=== PATIENT | male | born 1960 | race Caucasian/White ===

== ENCOUNTER 2023-01-07 07:05 | Outpatient (REF) | payer OTHER, SELFPAY ==
[2023-01-07 11:41] LABS: Appearance Urine Clear; Color Urine Yellow; Glucose Urine UA Negative (Negative); Leukocyte Esterase Urine Negative (Negative); Nitrite Urine Negative (Negative); Specific Gravity - Urine 1.015 (1.005-1.025); Urine Blood Negative (Negative); Urine Ketones Negative (Negative); Urine Protein Negative (Neg-Trace)
[2023-01-07 11:48] LABS: MANUAL DIFF FLAG NO
[2023-01-07 12:23] LABS: Alanine Aminotransferase 23 U/L (0-40); Albumin Level 4.2 g/dL (3.5-5.0); Alkaline Phosphatase 46 U/L (39-117); Anion Gap 13 (12-20); Aspartate Amino Transferase 22 U/L (5-37); Bilirubin Total 0.6 mg/dL (0.0-1.0); Blood Urea Nitrogen 8 mg/dL (9-16); Calcium 9.2 mg/dL (8.4-10.2); Carbon Dioxide 29 mmol/L (22-29); Chloride 98 mmol/L (96-108); Cholesterol 168 mg/dL (<200); Estimated Glomerular Filt Rate > 60; Glucose Fasting 100 mg/dL (60-99); HDL Cholesterol 45 mg/dL (>40); LDL Cholesterol Calculated 97 mg/dL (<100); Potassium 3.9 mmol/L (3.3-5.1); Sodium 136 mmol/L (135-145); Triglycerides 134 mg/dL (<150)
[2023-01-07 12:31] LABS: Prostate Specific Antigen Scr 1.55 ng/mL (<0.05-4.0)
[2023-01-07 12:32] LABS: Basophils Absolute Auto 0.1 X10*3/uL (0.0-0.2); Basophils Percent Auto 1.2 % (0-2); Eosinophils Absolute Auto 0.1 X10*3/uL (0.0-0.4); Eosinophils Percent Auto 1.9 % (0-4); Hematocrit 49.6 % (42.0-52.0); Hemoglobin 16.5 g/dl (14.0-18.0); Imm Gran Abs Auto 0.02 X10*3/uL (0.00-0.03); Imm Gran Pct Auto 0.4 % (0.0-0.4); Lymphocytes Absolute Auto 1.9 X10*3/uL (1.2-4.9); Lymphocytes Percent Auto 36.5 % (20-40); Mean Corpuscular HGB Conc 33.3 g/dl (31.0-36.0); Mean Corpuscular Hemoglobin 31.6 pg (27.0-33.0); Mean Platelet Volume 9.9 fL (9.4-12.4); Monocytes Absolute Auto 0.6 X10*3/uL (0.1-1.2); Monocytes Percent Auto 11.8 % (2-11); Neutrophils Absolute Auto 2.5 x10*3/uL (2.0-8.3); Neutrophils Percent Auto 48.2 % (45-73); Platelet Count 248 X10*3/uL (160-400); Red Blood Count 5.22 X10*6/uL (4.60-5.80); Red Cell Distribution Width 13.4 % (11.0-16.0); White Blood Count 5.2 X10*3/uL (4.8-10.8)
[2023-01-07 12:42] LABS: TSH reflex Free T4 1.99 uIU/mL (0.32-4.0)
== END 2023-01-07 07:06 | disposition home or self-care (01) ==
LOC: HO.HMGCLDS 07:05
PROVIDERS: PCP Nurse Practitioner Family; Visit Provider Nurse Practitioner Family
DX: Z12.5 Encounter for screening for malignant neoplasm of prostate (principal); F17.200 Nicotine dependence, unspecified, uncomplicated
CPT/HCPCS: 36415; 80053; 80061; 81003; 84153; 84443; 85025

== ENCOUNTER 2023-02-02 08:08 | Outpatient (AMB) | payer OTHER, SELFPAY ==
--- NOTE | 2023-02-02 08:10 | A.OFFVIS_ITS ---
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 Patient reports that he had a jammed the finger while playing basketball about 5-6 years ago. After this injury he saw a hand surgeon who suggested a swan neck ring. He does wear this but the finger has become increasingly painful. 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 He was seen by a hand surgeon where he was suggested a swanneck ring. He has not been wearing the ring and his finger has become increasingly painful. 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 [facility] Surgical History History of rectal surgery Social History Housing: Apartment Patient Tobacco Use Status: Current everyday Tobacco user Cigarette Packs Per Day: 1 Cigarettes Per Day: 20 Years Smoked: 47 years e-Cigarette/Vaping Use: Never Used service: No Current occupational status: retired Cognitive needs: No Hearing needs: Yes Vision needs: Yes Review of Systems Const All systems reviewed & are unremarkable except as noted in HPI and below Physical Exam Const General: cooperative, healthy appearing, comfortable, no acute distress, well developed and alert Orientation/consciousness: patient oriented x3 HEENT Head: Yes normal to inspection, Yes normocephalic and Yes atraumatic Eyes General: appearance normal, both eyes and all related structures Resp Effort & Inspection: normal respiratory effort and able to speak in complete sentences Cardio Rate: regular rate Peripheral pulses: Peripheral pulses 2+ throughout GI Palpation (GI): Soft to palpation Skin Lesions: no lesions Rashes: no rashes Neuro General: patient oriented x3 Extrem Other: Left small finger: Swanneck deformity. He is able to bring his small finger down to his fist with some assistance. NVI. 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 I explain to him treatment for an injury about 5-6 years out maybe an arthrodesis depending on the actual injury whether it is a rupture of tendon or central slip injury. I think this is more of a central slip injury and I would like him to see with Dr. Lowery to further determine appropriate treatment plan. Orders: Orders XR hand LT min 3V Today M79.642 - Pain in left hand Patient Instructions: Scribed for Colleen Huitron PA-C, by Arpit Richards medical claims analyst, on 02/02/2023 at 8:00 AM EST. I, Colleen Huitron PA-C, have personally reviewed and agree with the information entered by the scribe. Coding Level of Care Code New Pt Level 3 (83731) Diagnoses [place]-neck deformity of finger of left hand M20.032
== END 2023-02-02 08:59 | disposition home or self-care (01) ==
PROVIDERS: PCP Nurse Practitioner Family; Visit Provider Physician Assistant
DX: M20.032 Swan-neck deformity of left finger(s) (principal)
CPT/HCPCS: 99203

== ENCOUNTER 2023-02-02 09:18 | Outpatient (REF) | payer OTHER, SELFPAY | END 2023-02-02 09:19 | disposition home or self-care (01) | LOC: HO.HOSX 09:18 | PROVIDERS: Visit Provider Physician Assistant | DX: M20.032 Swan-neck deformity of left finger(s) (principal) | CPT/HCPCS: 73130; 99202 ==

== ENCOUNTER 2023-03-08 07:04 | Outpatient (AMB) | payer OTHER, SELFPAY ==
--- NOTE | 2023-03-08 07:10 | A.OFFPC_ITS ---
Intake Visit Reasons: 2 Month F/U Allergies No Known Allergies Allergy (Verified 02/02/23 08:12) Tobacco use date assessed: 01/05/23 HPI 2 Month F/U HPI Details Pt was previously started on wellbutrin for depression. He reports that he stopped taking this because he did not like how it made him feel. Will start duloxetine 20mg, 1 tab a day for 2 weeks then increasing to bid. Denies any SI and HI. Pt is following up with ortho due to a deformity of his finger. [facility] Surgical History History of rectal surgery Social History Housing: Apartment Patient Tobacco Use Status: Current everyday Tobacco user Cigarette Packs Per Day: 1 Cigarettes Per Day: 20 Years Smoked: 47 years e-Cigarette/Vaping Use: Never Used service: No Current occupational status: retired Cognitive needs: No Hearing needs: Yes Vision needs: Yes Questionnaire Thrive Questionnaire Date Thrive assessed: 01/05/23 VICK-7 AMB Questionnaire VICK-7 Date VICK - 7 assessed: 01/05/23 Source: Developed by Drs. Uriel Garcia, Maida Barbour, Pj Nelson and colleagues, with an educational richie from [employer]. Review of Systems Const Reports as per HPI Physical exam (Primary Care) Tobacco/Smoking Status: Tobacco use Status Tobacco use date assessed 01/05/23 02/02/23 08:40 Patient Tobacco Use Status Current everyday Tobacco 02/02/23 08:40 e-Cigarette/Vaping Use Never Used 02/02/23 08:40 Thrive Assessment: Date of Thrive Assessment Date Thrive assessed 01/05/23 02/02/23 08:40 Const General: cooperative Orientation/consciousness: patient oriented x3 Neuro General: patient oriented x3 Psych Appearance: grossly normal Mental Status: mental status grossly normal Speech and movement: Clear speech present Affect: normal affect Attitude: cooperative Thought process: Normal thought process present Thought content: Normal thought content present Insight: Good insight present (Psych) Judgement: Good judgement present (Psych) Telehealth Telehealth Location of provider rendering services: practice address Location of patient: address on file Patient Identification confirmed using: Name, : Yes Telehealth method: video Patient verbally consented to treatment: Yes Patient verbally consented to billing insurance company: Yes Patient informed of any privacy concerns related to visit: Yes Minutes spent on Phone/Video with Pt.: 15 Assessment and Plan Assessment & Plan (1) Depression: Code(s): F32.A - Depression, unspecified Plan: starting duloxetine (2) [place]-neck deformity of finger of left hand: Code(s): M20.032 - [place]-neck deformity of left finger(s) Plan: seeing ortho Plan The patient agreed to the use of a medical support assistant for this encounter. Scribed for JIN Hussein-KETAN by Ingrid Kaba medical support assistant, on 03/08/2023 at 07:10 EST. Medications: New duloxetine first 2 weeks take one tab once a day 20 mg PO BID 30 days 60 caps 2RF Coding Level of Care Code Tele Est Pt Level 3 (48716) Diagnoses Depression F32.A [place]-neck deformity of finger of left hand M20.032
== END 2023-03-08 07:40 | disposition home or self-care (01) ==
LOC: HO.HMGC 07:04
PROVIDERS: PCP Nurse Practitioner Family; Visit Provider Nurse Practitioner Family
DX: F32.A Depression, unspecified (principal); M20.032 Swan-neck deformity of left finger(s)
CPT/HCPCS: 99213

== ENCOUNTER 2023-03-23 12:50 | Outpatient (AMB) | payer MEDICARE, SELFPAY ==
--- NOTE | 2023-03-23 13:43 | A.OFFVIS_ITS ---
Intake Vital Signs 03/23/23 13:45 Height 6 ft 4 in Weight 180 lb BMI 21.9 Intake Visit Reasons: OV-Eval LT small finger Intake Note: Tommy 62 yr old waldron who is right hand dominant presents today for her further evaluation for his [place]-neck deformity of small finger of left hand. States since he was given a finger splint, he has less pain. Allergies No Known Allergies Allergy (Verified 03/23/23 13:45) HPI OV-Eval LT small finger HPI Details Tommy is a 62 year old right hand dominant man who presents to discuss his left small finger hyperextension. He was seen by KAPIL Macias on 02/02/23 and given a finger splint. He says he still has some pain, but this has been better since he began wearing his finger splint that Colleen gave him at his last appointment. He says he has increased pain with reaching activities He says he first injured his finger in ~2017 while playing Basketball, and has had a deformity in his small finger since. he was told by an Orthopedic hand surgeon to wear a silver-ring splint, but he did not wear this often and it made his deformity worse. 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 [facility] Surgical History History of rectal surgery Social History Housing: Apartment Patient Tobacco Use Status: Current everyday Tobacco user Cigarette Packs Per Day: 1 Cigarettes Per Day: 20 Years Smoked: 47 years e-Cigarette/Vaping Use: Never Used service: No Current occupational status: retired Cognitive needs: No Hearing needs: Yes Vision needs: Yes Review of Systems Const All systems reviewed & are unremarkable except as noted in HPI and below Physical Exam Vital Signs: BMI result Body Mass Index 21.9 Const General: cooperative, healthy appearing and no acute distress Orientation/consciousness: patient oriented x3 HEENT Head: Yes normocephalic and Yes atraumatic Eyes EOM: EOMs intact bilaterally Resp Effort & Inspection: normal respiratory effort and able to speak in complete sentences Cardio Jugular venous distension: no JVD Skin General skin exam: turgor normal Rashes: no rashes Neuro General: patient oriented x3 Extrem Other: Evaluation of Left Upper Extremity: The patient is alert, oriented, and in no acute distress He was wearing an Alumafoam splint that he had bent at the PIP joint which holds the PIP joint at about 70 degrees of flexion. He says he wears this most of the day and at night. I could see where this would be prevent ting hyper extension and allowing for some tightening of the volar plate. He can make a nice fist with his left hand and then bring all of his fingers into extension. Importantly, when he brings all of his fingers into extension actively, I am only seeing perhaps 5 degrees or so of hyper extension at the small finger PIP today. In looking at his fingers in general, including in his uninjured right hand, I do see natural hyper extension of perhaps 20 degrees or so at the PIP joints. With regards to the left small finger, I gently passively extend the finger and only got the PIP joint to perhaps 10 or 15 degrees of extension. It did not tend to want to hyper extend further, and I certainly did not force it. I will say however, that I did feel the snap of a tendon on the dorsal radial aspect of the PIP joint snapping from radial to dorsal with the small amount of hyper extension. It is possible that this is the radial lateral band that could be subluxating dorsally with extension. That being said, I do think that the volar plate of the small finger PIP joint is tightening up some on its own, as I certainly do not see the hyper extension to 50 degrees or so that I saw on the radiograph from 02/02/2023. Radiographs: 3 views of the left hand from 02/02/23 were reviewed by me today in clinic. they show no fractures or dislocations. He has ~50 degrees of hyperextension at the small finger PIP joint. He also has ~20 degrees of hyperextension at the ring finger PIP joint. Psych Appearance: grossly normal Affect: normal affect Attitude: cooperative Assessment & Plan Assessment & Plan (1) [place]-neck deformity of finger of left hand: Code(s): M20.032 - [place]-neck deformity of left finger(s) Plan Assessment & Plan: 1. Left small finger [place]-neck deformity ~50 degrees hyperextension at the PIP joint From a Basketball injury in ~2016 I educated him about this condition This appears to be improving with the daily wearing of a splint that tends to hold the PIP joint about 70 degrees of flexion. He removes it for showering, but wears it to bed and throughout most of the day. This seems to be working pretty well, and he is satisfied with it. I am going to refer him to OT hand therapy to see if they can make him a custom thermoplastic splint that can hold the PIP joint and some flexion that may be lower in contour than what he has, and also allow the tip of the finger to be free. I discussed his Guitar playing and how he may modify his activities to allow for this. I did briefly discuss possible operative treatments. He might benefit from taking half of FDS and securing it to the A2 percy to prevent hyper extension if he finds treating with splinting is not working for him. Would want to see him again in check the radial lateral band again. He is happy with the current plan He will follow up prn Please note that greater than 25 minutes was spent with this patient going over the history, evaluating the patient and radiographs, formulating possible treatment options, discussing them with the patient, and documenting the visit. Scribed for Alva Lowery MD by Cedric Terry, medical laboratory technical officer, on 03/23/23 at 2:20 PM, EST. Coding Level of Care Code Est Pt Level 4 (74228) Diagnoses [place]-neck deformity of finger of left hand M20.032
[2023-03-23 13:45] VITALS: BMI 21.9
== END 2023-03-23 14:32 | disposition home or self-care (01) ==
PROVIDERS: PCP Nurse Practitioner Family; Visit Provider Orthopaedic Surgery
DX: M20.032 Swan-neck deformity of left finger(s) (principal)
CPT/HCPCS: 99214

== ENCOUNTER → 2023-03-23 12:50 | Outpatient (BNVA) | payer OTHER, SELFPAY | PROVIDERS: PCP Nurse Practitioner Family; Visit Provider Orthopaedic Surgery | DX: M20.032 Swan-neck deformity of left finger(s) (principal) | CPT/HCPCS: 99212 ==